=== PATIENT | female | born 1950 | race Caucasian/White ===

== ENCOUNTER 2023-12-23 17:06 | Emergency (ER) | payer MEDICARE, SELFPAY ==
--- NOTE | ~2023-12-23 | CT_ITS ---
EXAMINATION: CT abdomen pelvis wo con DATE: 12/23/2023 18:05 INDICATION: constipation TECHNIQUE: Computed tomography (CT) of the abdomen and pelvis was performed without intravenous contr ast. Automated exposure control and iterative reconstruction technique were employed. The dose-length product was 708.27 mGy-cm. COMPARISON: None. FINDINGS: Lower thorax: Minimal bibasilar atelectasis/scar. Liver: Normal. Biliary/Gallbladder: Gallbladder is normal. No bile duct dilation. Pancreas: Fatty infiltration. Spleen: 1.0 cm inferior cyst or hemangioma. Adrenals:No mass. Kidneys: No suspicious mass, obstructing stone, or hydronephrosis. Simple right upper pole cyst. Bila teral atrophy. GI tract: No small bowel dilation. Mild dilation of the rectum to 5.3 cm which is distended by formed stool. Normal appendix. Mesentery/Peritoneum: No ascites, mass, or free air. Retroperitoneum: No mass. Atherosclerotic abdominal aortic and/or arterial calcifications. 2.2 cm spl enic artery aneurysm. Pelvis: Distended urinary bladder with no wall thickening. Multiple uterine fibroids. Simple 5.1 cm r ight ovarian cyst. Soft Tissues: Soft tissues and body wall unremarkable. Bones: No acute osseous finding. Lumbar scoliosis. IMPRESSION: 2.2 cm splenic artery aneurysm. Recommend nonemergent but timely interventional radiology referral fo r possible endovascular therapy. Possible mild fecal impaction. Moderate volume of colonic stool, may represent constipation in the ap propriate clinical context. 5.1 cm simple appearing right ovarian cyst, recommend follow-up ultrasound of the pelvis in 6-12 phong hs. Reviewed, dictated and finalized at location K. AL SCHEDULER IMPRESSION: 2.2 cm splenic artery aneurysm. Recommend nonemergent but timely interventional radiology referral for possible endovascular therapy. Possible mild fecal impaction. Moderate volume of colonic stool, may represent constipation in the appropriate clinical context. 5.1 cm simple appearing right ovarian cyst, recommend follow-up ultrasound of t he pelvis in 6-12 months.
[2023-12-23 17:35] VITALS: BP 142/100; PULSE 97; RESP 18; TEMP 36.6; O2SAT 97
--- NOTE | 2023-12-23 17:47 | ED.GENADULT ---
HPI - General Adult General Chief complaint: Abdominal Pain <Mariaa Gerardo SLUDGE MILL OPERATOR - Last Filed: 12/23/23 17:54> Stated complaint: constipation <Mariaa Gerardo SLUDGE MILL OPERATOR - Last Filed: 12/23/23 17:54> Time Seen by Provider: 12/23/23 17:47 <Mariaa Goodman March SLUDGE MILL OPERATOR - Last Filed: 12/23/23 17:54> Focused HPI: Mirtha Shah is a 73 y/o female who presents with reports of fell 1 week ago and broke her right arm, she has been taking Hydrocodone for pain and now has not had a BM in 7-8 days and now having increased abdominal pain/ pressure pain/ having a hard time sitting because of the amount of rectal pressure/pain. Reports she has taken Miralax / Dulcolax / Senokot / tablespoon of olive oil and juice/ senna tea/ tried a suppository and with no luck. Denies nausea/vomiting/ fevers She also states she is stage IV kidney disease GENERAL: Well-appearing, well-nourished, and in no acute distress. HEAD: Normocephalic, atraumatic. CHEST: Clear to auscultation. ?No respiratory distress. HEART: Regular rate and rhythm.? NEURO: ?Alert and oriented x3. Patient screened in triage and initial orders placed.? ?Additional care and disposition to be based upon?diagnostic testing and treatment. <Mariaa Goodman March, SLUDGE MILL OPERATOR - Last Filed: 12/23/23 17:54> History of Present Illness HPI narrative: 73-year-old female presenting to the emergency department for evaluation for evaluation of constipation. Patient did have recent surgery, patient has been taking hydrocodone and patient states he does have increased rectal pressure and urgency. Patient has been trying multiple medications to help soften the stool with no success. Patient did stop taking her [place] 2 days ago. <Armando Bowman MD - Last Filed: 12/24/23 07:05> Related Data Home medications: Home Medications Medication Instructions Recorded Confirmed cholecalciferol (vitamin D3) 25 25 mcg PO DAILY 03/13/22 05/28/23 mcg (1,000 unit) capsule hydrochlorothiazide 12.5 mg tablet 12.5 mg PO DAILY 03/13/22 05/28/23 loratadine 10 mg capsule 10 mg PO DAILY 03/13/22 05/28/23 losartan 100 mg tablet 100 mg PO DAILY 03/13/22 05/28/23 multivitamin 1 tablet PO DAILY 03/13/22 05/28/23 dapagliflozin propanediol 10 mg 10 mg PO DAILY 12/06/22 05/28/23 tablet (Farxiga) famotidine 40 mg tablet (Pepcid) 40 mg PO DAILY 05/28/23 05/28/23 <Mariaa Goodman March, SLUDGE MILL OPERATOR - Last Filed: 12/23/23 17:54> Allergies/adverse reactions: Allergies Allergy/AdvReac Type Severity Reaction Status Date / Time lisinopril Allergy Unknown unknown Verified 12/06/22 13:59 Penicillins Allergy Unknown unknown Verified 12/06/22 13:59 erythromycin base AdvReac Severe GI UPSET Unverified 12/06/22 13:59 <Mariaa Goodman March,N - Last Filed: 12/23/23 17:54> Review of Systems Review of Systems: All systems reviewed & are unremarkable except as noted in HPI and below <Armando Bowman MD - Last Filed: 12/24/23 07:05> [facility] Past Medical History Medical History: Medical History (Updated 12/24/23 @ 00:00 by Dany Saldaña) Alport's syndrome stage 3B Arthritis knees Breast cancer in female (~04/2018) left breast cancer stage 0/lumpectomy High cholesterol History of radiation therapy (~2017) Hypertension Labial skin tag Osteopenia Skin tag (12/06/22) Labial skin tag removal <Mariaa Goodman March,N - Last Filed: 12/23/23 17:54> Surgical History Surgical History: Surgical History (Updated 05/28/23 @ 11:04 by Adri Smith [facility]) History of dilation and curettage (~2008) menorrhagia, fibroids History of endometrial ablation (~2008) menorrhagia History of lumpectomy of left breast (04/23/18) stage 0 cancer History of tonsillectomy and adenoidectomy Status post surgical removal of malignant neoplasm of skin <Mariaa Gerardo, SLUDGE MILL OPERATOR - Last Filed: 12/23/23 17:54> Family History Family History: Family History Sibling Patient's sister is in
[2023-12-23 20:58] LABS: Basophils Absolute Auto 0.1 K/mm3 (0.0-0.1); Basophils Percent Auto 0.5 % (0.2-1.2); Eosinophils Percent Auto 0.2 % (0-4.4); Hematocrit 40.8 % (37.0-47.0); Hemoglobin 13.2 g/dL (12.0-15.0); Immature Granulocyte Absolute 0.04 K/mm3 (0.00-0.031); Immature Granulocyte Percent A 0.4 % (0-0.5); Lymphocytes Absolute Auto 0.92 K/mm3 (0.9-3.2); Lymphocytes Percent Auto 8.4 % (18.3-44.2); Mean Corpuscular HGB Conc 32.4 g/dl (32-36); Mean Corpuscular Hemoglobin 28.8 pg (26-34); Mean Corpuscular Volume 89.1 fl (80-100); Mean Platelet Volume 9.6 fl (7.4-10.4); Monocytes Absolute Auto 0.8 K/mm3 (0.1-0.6); Monocytes Percent Auto 7.1 % (2.6-8.5); Neutrophils Absolute Auto 9.1 K/mm3 (1.3-6.7); Neutrophils Percent Auto 83.4 % (45.5-73.1); Platelet Count Result 377 k/mm3 (150-375); Red Blood Count 4.58 M/mm3 (4.2-5.4); Red Cell Distribution Width 13.9 % (11.5-14.5); White Blood Count 10.9 K/mm3 (4.5-10.0)
--- NOTE | 2023-12-23 22:06 | PC.NURSE ---
Pt states that she had a large BM and urinated and feels much better. ERP notified.
[2023-12-23 22:21] LABS: Alanine Aminotransferase 35 U/L (6-35); Albumin Level 4.3 g/dL (3.5-5.1); Alkaline Phosphatase 174 U/L (38-126); Anion Gap 13 mmol/L (8-16); Aspartate Amino Transferase 46 U/L (14-36); Bilirubin,Total 1.2 mg/dL (0.2-1.3); Blood Urea Nitrogen 45 mg/dL (7-17); Calcium 9.6 mg/dL (8.4-10.2); Carbon Dioxide 26 mmol/L (22-30); Chloride 92 mmol/L (98-107); Estimated CRCL calculation 24 ml/min; Estimated Glomerular Filt Rate 30; Glucose 114 mg/dL (65-110); Potassium 3.3 mmol/L (3.4-5.0); Sodium 131 mmol/L (137-145)
[2023-12-23 23:03] VITALS: BP 135/89; PULSE 87; RESP 14; O2SAT 98
== END 2023-12-23 23:07 | disposition home or self-care (01) ==
PROVIDERS: Nurse Practitioner Family; Emergency Provider Emergency Medicine; PCP Hospitalist
DX: K59.00 Constipation, unspecified (principal); Q87.81 Alport syndrome; N18.4 Chronic kidney disease, stage 4 (severe); I12.9 Hypertensive chronic kidney disease with stage 1 through stage 4 chronic kidney disease, or unspecified chronic kidney disease; E78.00 Pure hypercholesterolemia, unspecified; M85.80 Other specified disorders of bone density and structure, unspecified site; M17.0 Bilateral primary osteoarthritis of knee; Z85.3 Personal history of malignant neoplasm of breast; Z85.828 Personal history of other malignant neoplasm of skin; Z92.3 Personal history of irradiation
CPT/HCPCS: 36415; 74176; 80053; 85025; 99284

== ENCOUNTER 2024-01-06 08:52 | Emergency (ER) | payer MEDICARE, SELFPAY ==
--- NOTE | ~2024-01-06 | XR_ITS ---
EXAMINATION: XR chest 2V DATE: 01/06/2024 09:51 INDICATION: Shortness of breath. Chest tightness. TECHNIQUE: Frontal and lateral views of the chest were obtained. COMPARISON: Chest 2 views 10/30/2017, CT abdomen and pelvis 12/23/2023 FINDINGS: There is no pneumonia, pleural effusion, pneumothorax. The heart size is normal. There is a total right shoulder arthroplasty. IMPRESSION: 1. No acute cardiopulmonary disease. Reviewed, dictated and finalized at location E. HOTHERAPIST SOCIAL WORKER
--- NOTE | ~2024-01-06 | CT_ITS ---
EXAMINATION: CTA chest PE protocol DATE: 01/06/2024 10:57 INDICATION: Shortness of breath. TECHNIQUE: Computed tomography angiography (CTA) of the chest was performed with 100 mL Omnipaque-350 intravenous contrast timed to evaluate the pulmonary arteries. Coronal maximum intensity projection 3D-reconstructions were created by the technologist. Automated exposure control and iterative reconst ruction technique were employed. The dose-length product was 360.73 mGy-cm. COMPARISON: CT abdomen and pelvis 12/23/2023 FINDINGS: The lungs demonstrate mild atelectasis. Calcified bilateral lung nodules are consistent wit h old granulomatous disease. No pleural effusion. The heart size is normal. No pericardial effusion. There is no pulmonary embolus. There is cortical thinning of the kidneys. There is a 2.6 cm cyst in r ight kidney. There is a 1.7 cm mass of left kidney. There is a right shoulder arthroplasty. There is thoracic dextroscoliosis and mild spondylosis. IMPRESSION: 1. No pulmonary embolus. 2. 1.7 cm left kidney mass suspicious for renal cell carcinoma. Abdomen CT without and with contrast is recommended. Reviewed, dictated and finalized at location E. STRIPPER IMPRESSION: 1. No pulmonary embolus. 2. 1.7 cm left kidney mass suspicious for renal cell carcinoma. Abdomen CT with out and with contrast is recommended.
[2024-01-06 08:48] VITALS: BP 170/93; PULSE 63; RESP 13; TEMP 36.9; O2SAT 98
[2024-01-06 09:01] VITALS: PULSE 62; O2SAT 97
--- NOTE | 2024-01-06 09:07 | ECG_ITS ---
Measurements Intervals [place] Rate: 63 P: 26 NV: 119 QRS: 21 QRSD: 84 T: 64 QT: 426 QTc: 438 Interpretive Statements SINUS RHYTHM WITH SHORT NV INTERVAL BASELINE ARTIFACT- I, III, AVR, AVL, AVF, V4-V6 BORDERLINE ECG NO PREVIOUS ECG AVAILABLE FOR COMPARISON Electronically Signed On 01-06-2024 9:19:14 PRODUCT MANUFACTURING PROFESSIONAL by Glenn Deng D.O.
--- NOTE | 2024-01-06 09:20 | ED.GENADULT ---
HPI - General Adult General Chief complaint: Shortness of Breath/Dyspnea Stated complaint: SOB Time Seen by Provider: 01/06/24 08:57 History of Present Illness HPI narrative: Mirtha Shah is a 73 y/o female who presents with PMhx of HTN/HLD/ GERD/ right shoulder replacement surgery 5 days ago. SHe states that she woke up in the middle of the night and felt SOB/states she was panting for air. She repositioned herself and went back to sleep. She states she woke up today at 0630 this morning and felt mid chest heaviness that might be at severity of 5/10 and felt clammy and she got nervous. She reports that she currently denies SOB and she thinks her chest heaviness might be getting a little better - denies wanting anything for pain at this time. Denies any changes to bowel/ urine/ Related Data Home Medications Medication Instructions Recorded Confirmed cholecalciferol (vitamin D3) 25 25 mcg PO DAILY 03/13/22 01/06/24 mcg (1,000 unit) capsule loratadine 10 mg capsule 10 mg PO PRN 03/13/22 01/06/24 losartan 100 mg tablet 100 mg PO DAILY 03/13/22 01/06/24 multivitamin 1 tablet PO DAILY 03/13/22 01/06/24 dapagliflozin propanediol 10 mg 10 mg PO DAILY 12/06/22 01/06/24 tablet (Farxiga) famotidine 40 mg tablet (Pepcid) 40 mg PO PRN 05/28/23 01/06/24 atorvastatin 20 mg tablet mg 01/06/24 doxycycline hyclate 100 mg tablet mg 01/06/24 Allergies Allergy/AdvReac Type Severity Reaction Status Date / Time lisinopril Allergy Unknown unknown Verified 01/06/24 09:02 Penicillins Allergy Unknown unknown Verified 01/06/24 09:02 erythromycin base AdvReac Severe GI UPSET Verified 01/06/24 09:02 Review of Systems Review of Systems: CONSTITUTIONAL: Denies fever, chills, Reports feeling clammy this AM EYES: Denies visual changes, redness, or discharge. ENT: Denies rhinorrhea, congestion, sore throat, or otalgia. CARDIOVASCULAR: Reports of having mid sternal heaviness that she first noticed when she woke today at around 0630, denies palpitations, or edema. RESPIRATORY: Denies cough Reports feeling SOB last night/ none at this time. GASTROINTESTINAL: Denies abdominal pain, nausea, vomiting, or diarrhea. GENITOURINARY: Denies dysuria or hematuria. SKIN: Denies rash or itching. MUSCULOSKELETAL: Denies back pain, joint pain, or myalgia. NEUROLOGIC: Denies headache, numbness, dizziness, or weakness. PSYCHIATRIC: Denies anxiety or depression. [facility] Past Medical History Medical History Alport's syndrome stage 3B Arthritis knees Breast cancer in female (~04/2018) left breast cancer stage 0/lumpectomy High cholesterol History of radiation therapy (~2017) Hypertension Labial skin tag Osteopenia Skin tag (12/06/22) Labial skin tag removal Surgical History Surgical History History of dilation and curettage (~2008) menorrhagia, fibroids History of endometrial ablation (~2008) menorrhagia History of lumpectomy of left breast (04/23/18) stage 0 cancer History of tonsillectomy and adenoidectomy Status post surgical removal of malignant neoplasm of skin Family History Family History Sibling Patient's sister is in good health Leukemia brother Father Family history of thoracic aortic aneurysm Patient's father is Mother Family history of heart disease in male family member before age 55 Patient's mother is Son Kidney replaced by transplant Renal failure syndrome Social History Social History Smoking status: Never smoker Alcohol intake: current Alcohol use details: 2 x month Substance use: never Substance use type: does not use Lack of Transportation: No Lack of Food: Never True Current Housing: I Have Housing Concerned About Future Housing: No Diffic
[2024-01-06 09:51] LABS: Basophils Absolute Auto 0.1 K/mm3 (0.0-0.1); Basophils Percent Auto 0.8 % (0.2-1.2); Eosinophils Absolute Auto 0.4 K/mm3 (0-0.3); Hematocrit 35.2 % (37.0-47.0); Hemoglobin 10.8 g/dL (12.0-15.0); Immature Granulocyte Absolute 0.04 K/mm3 (0.00-0.031); Immature Granulocyte Percent A 0.7 % (0-0.5); Lymphocytes Absolute Auto 1.27 K/mm3 (0.9-3.2); Lymphocytes Percent Auto 21.2 % (18.3-44.2); Mean Corpuscular HGB Conc 30.7 g/dl (32-36); Mean Corpuscular Hemoglobin 28.3 pg (26-34); Mean Corpuscular Volume 92.4 fl (80-100); Mean Platelet Volume 9.6 fl (7.4-10.4); Monocytes Absolute Auto 0.6 K/mm3 (0.1-0.6); Monocytes Percent Auto 10.5 % (2.6-8.5); Neutrophils Absolute Auto 3.6 K/mm3 (1.3-6.7); Neutrophils Percent Auto 60.8 % (45.5-73.1); Platelet Count Result 368 k/mm3 (150-375); Red Blood Count 3.81 M/mm3 (4.2-5.4); Red Cell Distribution Width 14.5 % (11.5-14.5)
[2024-01-06 10:00] LABS: Alanine Aminotransferase 15 U/L (6-35); Albumin Level 3.3 g/dL (3.5-5.1); Alkaline Phosphatase 137 U/L (38-126); Anion Gap 7 mmol/L (8-16); Aspartate Amino Transferase 26 U/L (14-36); Bilirubin,Total 0.6 mg/dL (0.2-1.3); Blood Urea Nitrogen 21 mg/dL (7-17); Carbon Dioxide 23 mmol/L (22-30); Chloride 111 mmol/L (98-107); Estimated CRCL calculation 30 ml/min; Estimated Glomerular Filt Rate 37; Glucose 92 mg/dL (65-110); Potassium 3.3 mmol/L (3.4-5.0); Sodium 141 mmol/L (137-145)
[2024-01-06 10:02] LABS: INR 1.1; Prothrombin Time 14.6 Seconds (11.1-14.7)
[2024-01-06 10:03] LABS: Partial Thromboplastin Time 33.7 SECONDS (22.3-36.8)
[2024-01-06 10:12] LABS: D Dimer 1.56 ug/mL (<0.48); NT Pro B Type Natriuretic Pept 500 pg/mL (19.9-100); Troponin I < 0.012 ng/mL (0.000-0.034)
[2024-01-06 11:32] VITALS: BP 153/89; PULSE 65; RESP 17; O2SAT 97
[2024-01-06 11:46] VITALS: BP 156/85; PULSE 64; RESP 16; O2SAT 97
[2024-01-06 12:16] VITALS: BP 144/80; PULSE 67; RESP 14
[2024-01-06 12:31] VITALS: BP 141/88; PULSE 71; RESP 13; O2SAT 100
[2024-01-06 12:55] LABS: Troponin I < 0.012 ng/mL (0.000-0.034)
== END 2024-01-06 14:41 | disposition home or self-care (01) ==
PROVIDERS: Emergency Provider Nurse Practitioner Family; PCP Hospitalist
DX: R06.00 Dyspnea, unspecified (principal); I10 Essential (primary) hypertension; E78.00 Pure hypercholesterolemia, unspecified; Q87.81 Alport syndrome; N18.32 Chronic kidney disease, stage 3b; K21.9 Gastro-esophageal reflux disease without esophagitis; M85.80 Other specified disorders of bone density and structure, unspecified site; M17.0 Bilateral primary osteoarthritis of knee; Z96.611 Presence of right artificial shoulder joint; Z85.3 Personal history of malignant neoplasm of breast; Z92.3 Personal history of irradiation; Z85.828 Personal history of other malignant neoplasm of skin; N28.89 Other specified disorders of kidney and ureter; R94.31 Abnormal electrocardiogram [ECG] [EKG]
CPT/HCPCS: 36415; 71046; 71275; 80053; 83880; 84484; 85025; 85380; 85610; 85730; 93005; 99284; Q9967